=== PATIENT | female | born 2000 | race Two or more races ===

== ENCOUNTER 2024-03-28 23:48 | Emergency (ER) | payer BC, SELFPAY ==
--- NOTE | ~2024-03-28 | XR_ITS ---
CLINICAL HISTORY: cough 1 view chest x-ray Comparison: None Findings: No consolidation or effusion. No pneumothorax. Normal size heart. Superficial metal opacities noted, including imaged left upper quadrant. No acute fracture. IMPRESSION: No consolidation. Left abdominal metal is favored to be superficial. This document has been electronically signed by: Edin Baumann MD on 03/29/2024 00:50:06
[2024-03-28 23:59] VITALS: BP 122/92; BP 144/99; PULSE 104; PULSE 108; RESP 18; TEMP 37; O2SAT 97; O2SAT 99; BMI 22.8
[2024-03-29 00:47] LABS: IDNOW Serial# 58CA691E; Strep A Nucleic Acid Negative (Negative)
[2024-03-29 01:05] LABS: Influenza A PCR POSITIVE (Negative); Influenza B PCR NEGATIVE (Negative); Resp Syncy Virus RNA Qual PCR NEGATIVE (Negative); SARS COV2 PCR INHOUSE NEGATIVE (Negative)
--- NOTE | 2024-03-29 04:55 | ED.URI ---
HPI - URI/Sore Throat General Chief Complaint: Upper Respiratory Symptoms Stated Complaint: cough and fever x 2 days Time Seen by Provider: 03/29/24 04:39 Source: patient Mode of arrival: ambulatory Limitations: no limitations History of Present Illness ED Provider: Dr. Gem Rai HPI Narrative: Patient comes to the emergency room complaining of 2 days of cough, body aches, headache, sore throat. Patient has been taking [id number] medications without relief. Patient states that a few days ago she returned from [place]. Patient believes that she has been exposed to influenza. Patient states that she has been having intermittent fevers at home. Related Data Previous Rx's ?Medication ?Instructions ?Recorded benzonatate 100 mg capsule 100 mg PO TID PRN cough #12 caps 03/29/24 oseltamivir 75 mg capsule (Tamiflu) 75 mg PO BID 5 days #10 caps 03/29/24 Allergies Allergy/AdvReac Type Severity Reaction Status Date / Time No Known Allergies Allergy Verified 03/29/24 00:03 Review of Systems Review of Systems: Constitutional : No Weight loss, complaining of fever and chills, fatigue and generalized malaise ENT/Mouth : No Hearing loss, No Ear Pain, No Nasal Congestion, No Sinus Pain, No Hoarseness, complaining of sore throat, No Rhinorrhea, No Swallowing Difficulty Eyes: No Eye Pain, No Swelling, No Redness, No Foreign Body, No Discharge, No Vision Changes Cardiovascular : No Chest Pain, No SOB, No Dyspnea on Exertion, No Orthopnea, No Edema, No Palpitations Respiratory : No Cough, No Sputum, No Wheezing, No Smoke Exposure, No Dyspnea Gastrointestinal : No Nausea, No Vomiting, No Diarrhea, No Constipation, No abdominal Pain, No Hematochezia, No Melena Genitourinary : no irregular bleeding, No Dysuria, No Urinary Frequency, No Hematuria, No Urinary Incontinence, No Urgency, No Flank Pain, No Urinary Flow Changes, No Hesitancy Musculoskeletal : No joint pain, No Myalgias, No Joint Swelling Skin : No Skin Lesions, No rash Neuro : No Weakness, No Numbness, No Paresthesias, No Loss of Consciousness, No Dizziness, No Headache Psych : No Anxiety/Panic, No Depression, No SI/HI/AH/VH, No Social Issues, Heme/Lymph: No Bruising, No Bleeding,No Lymphadenopathy Endocrine : No Polyuria, No Polydipsia, No Temperature Intolerance [facility] Social History Social History Advance Directives: No Advance Directives Information Provided: Yes Do you have a plan to hurt others: No Plan Physical Exam Vital Signs: Vital Signs: Last Vital Signs Temp 98.6 F 03/28/24 23:59 Pulse 104 H 03/28/24 23:59 Resp 18 03/28/24 23:59 BP 144/99 H 03/28/24 23:59 Pulse Ox 99 03/28/24 23:59 O2 Del Method Room Air 03/28/24 23:59 BMI result Body Mass Index 22.8 Const: Other: Appearance: Alert. Oriented X3. No acute distress. Eyes: Pupils equal, round and reactive to light. ENT: Pharynx erythematous Raspy voice Neck: Normal inspection. Neck supple. No lymph nodes noted. No crepitus CVS: Normal heart rate and rhythm. Pulses normal. Normal S1 and S2 Respiratory: No respiratory distress. Breath sounds normal. No Wheezing. No rales Abdomen: Soft and nontender. No rigidity. No distention. Skin: Skin warm and dry. Normal skin color. Normal skin turgor. Extremities: No lower extremity edema. No Lacerations. No Rash Neuro: Oriented X 3. No motor deficit. No sensory deficit. Moving all extremities. No slurred speech. CN 2 through 12 grossly intact Psych: calm, cooperative, normal affect Medical Decision Making Medical Decision Making [facility] Narrative: Patient's chest x-ray does not show any acute abnormalities. Serology positive for influenza A I discussed the treatment options with the patient, including Tamiflu or symptomatic treatment. Patient opted to try Tamiflu Patient was given Tamiflu, ibuprofen, Tylenol and Tessalon Perles Lab Data [facility] Lab Attestation statement: I reviewed the patient's lab results. Labs: Lab Results 03/29/24 Range/Units 00:16 Influenza Type A (PCR) POSITIVE A (Negative) Influenza Type B (PCR) NEGATIVE (Negative) RSV RNA Qual (PCR) NEGATIVE (Negative) SARS-CoV-2 RNA (RT-PCR) NEGATIVE (Negative) S. pyogenes GrpA PERRI Negative (Negative) Independent Interpretation I performed an independent interpretation of an: Plain X-Ray Radiology Impression Discussion of test interpretation with radiology: I have reviewed the radiologist's reading. Radiologist Impression: No consolidation or effusion. No pneumothorax. Normal size heart. Superficial metal opacities noted, including imaged left upper quadrant. No acute fracture. IMPRESSION: No consolidation. Left abdominal metal is favored to be superficial. Discharge Plan Discharge Clinical Impression: Influenza A Patient Disposition: Home, Self-Care Instructions: Influenza (ED) Additional Instructions: Please follow-up with your primary care physician tomorrow. If you have any worsening or new symptoms, please return to the emergency room or call 911. The closest from [place] is [address] [place] [address] in [place], [place]. 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
[2024-03-29] MEDS: Benzonatate 100 MG CAPSULE PO (05:13)
[2024-03-29] MEDS: Acetaminophen 325 MG TABLET 650 MG PO (05:13)
[2024-03-29] MEDS: Ibuprofen 600 MG TABLET PO (05:14)
[2024-03-29] MEDS: Oseltamivir Phosphate 75 MG CAPSULE PO (05:14)
[2024-03-29 05:19] VITALS: BP 122/84; PULSE 107; RESP 18; TEMP 37.1; O2SAT 98
--- NOTE | 2024-03-29 05:21 | PC.NURSE ---
Medicated upon discharge, reviewed discharge instructions with pt. pt verbalized understanding, no sign of respiratory distress, pt able to speak in full sentences, pt ambulated with a steady gait upon discharge.
[2024-03-29 05:22] VITALS: BP 122/84; PULSE 107; RESP 18; TEMP 37.1; O2SAT 98
== END 2024-03-29 05:22 | disposition home or self-care (01) ==
PROVIDERS: Emergency Provider Emergency Medicine
DX: J10.1 Influenza due to other identified influenza virus with other respiratory manifestations (principal); R51.9 Headache, unspecified; R05.9 Cough, unspecified
CPT/HCPCS: 0241U; 71045; 87651; 99283; 99284

== ENCOUNTER → 2024-03-29 00:20 | Outpatient (BNV) | payer SELFPAY | PROVIDERS: Visit Provider Radiology Neuroradiology | DX: R05.9 Cough, unspecified (principal) | CPT/HCPCS: 71045 ==